=== PATIENT | female | born 1960 | race Caucasian/White ===

== ENCOUNTER 2016-04-15 09:11 | Outpatient (CLI) | payer MEDICARE | END 2016-04-15 09:12 | disposition home or self-care (01) | DX: M85.832 Other specified disorders of bone density and structure, left forearm (principal); E55.0 Rickets, active; Z96.643 Presence of artificial hip joint, bilateral ==

== ENCOUNTER 2017-01-01 16:05 | Outpatient (CLI) | payer MEDICARE ==
--- NOTE | 2017-01-02 15:13 | Mammography Report ---
DIGITAL SCREENING MAMMOGRAM: 01/01/2017 CLINICAL INDICATION: A 56-year-old for screening. COMPARISON: 07/2015, 04/2014, 04/2013, 03/2012, 04/2010 TECHNIQUE: Routine CC and MLO projections were obtained of the breasts. FINDINGS: Scattered fibroglandular tissue is present within the breasts. There are no dominant naya s, suspicious microcalcifications, or secondary signs of malignancy. In comparison to the previous st udies, there are no significant changes. ASSESSMENT: NO MAMMOGRAPHIC EVIDENCE OF MALIGNANCY. NO SIGNIFICANT INTERVAL CHANGES. RECOMMENDATION: Screening mammography is recommended annually. BIRADS category 1 - negative. STANDARD QUALIFYING STATEMENTS 1. This examination was reviewed with the aid of Computed-Aided Detection (CAD). 2. A negative or benign imaging report should not delay biopsy if clinically suspicious findings are present. Consider surgical consultation if warranted. More than 5% of cancers are not identified by i maging. 3. Dense breasts may obscure an underlying neoplasm. JOB #: [id number] EXT JOB #:[id number]
== END 2017-01-01 16:06 | disposition home or self-care (01) ==
LOC: DI.N 16:05
PROVIDERS: ATTEND Family Medicine
DX: Z12.31 Encounter for screening mammogram for malignant neoplasm of breast (principal)
CPT/HCPCS: 77067

== ENCOUNTER 2017-07-21 16:48 | Outpatient (CLI) | payer MEDICARE ==
--- NOTE | 2017-07-22 13:03 | Ultrasound Report ---
COMPLETE ABDOMINAL ULTRASOUND: 07/21/2017 CLINICAL INDICATION: Epigastric pain. TECHNIQUE: Real-time scanning was performed with traveling representative static images obtained. FINDINGS: The liver measures 15.3 cm. Hepatic echogenicity is increased, compatible with fatty infiltration. No focal parenchymal lesion or intrahepatic biliary dilatation is present. The gallbladder is surgically absent. The common bile duct measures 8 mm. The visualized pancreas is unremarkable. The right kidney measures 10.1 cm, and is unremarkable. The left kidney measures 9.5 cm, and demonstrates a 6 mm cortical cyst. Spleen measures 7 cm, and demonstrates normal echotexture. The abdominal aorta is normal in caliber throughout. The inferior vena cava is unremarkable. No free fluid is present. IMPRESSION: INCIDENTAL LEFT RENAL CYST. FATTY INFILTRATION OF THE LIVER. CHANGES OF CHOLECYSTECTOMY. TD: 07/22/2017 13:01
== END 2017-07-21 16:49 | disposition home or self-care (01) ==
LOC: DI 16:48
PROVIDERS: ATTEND Family Medicine
DX: K90.0 Celiac disease (principal); R10.13 Epigastric pain; Q61.01 Congenital single renal cyst; K76.0 Fatty (change of) liver, not elsewhere classified
CPT/HCPCS: 76700

== ENCOUNTER 2017-11-13 07:30 | Outpatient (CLI) | payer MEDICARE ==
[2017-11-13 18:54] LABS: BILIRUBIN,URINE NEGATIVE (NEGATIVE); GLUCOSE, URINE (UA) NEGATIVE (NEGATIVE); KETONES,URINE (UA) NEGATIVE (NEGATIVE); LEUKOCYTE ESTERASE, URINE NEGATIVE (NEGATIVE); NITRITE,URINE NEGATIVE (NEGATIVE); OCCULT BLOOD,URINE NEGATIVE (NEGATIVE); PROTEIN,URINE NEGATIVE (NEGATIVE); UROBILINOGEN,URINE 0.2 (NORMAL) E.U./dL (NORMAL)
[2017-11-13 19:08] LABS: BACTERIA,URINE None Seen /HPF (None Seen); CLARITY,URINE CLEAR (CLEAR); RBC,URINE None Seen /HPF (0-5); SQUAMOUS EPITHELIAL CELL,UR MOD Squamous (<= Few)
== END 2017-11-13 07:31 | disposition home or self-care (01) ==
LOC: LAB.WCP 07:30
PROVIDERS: ATTEND Physician Assistant Medical
DX: N39.46 Mixed incontinence (principal)
CPT/HCPCS: 81001; 87086

== ENCOUNTER 2017-12-05 14:24 | Outpatient (CLI) | payer MEDICARE | END 2017-12-05 14:25 | disposition home or self-care (01) | LOC: LAB.R 14:24 | PROVIDERS: ATTEND Physician Assistant Medical | DX: K52.9 Noninfective gastroenteritis and colitis, unspecified (principal) | CPT/HCPCS: 81599; 83630; 87045; 87046; 87177; 87209; 87329; 87493 ==

== ENCOUNTER 2017-12-10 14:12 | Outpatient (CLI) | payer MEDICARE ==
[2017-12-10] MEDS ORDERED: IOPAMIDOL-300 100 ML VIAL ONE (14:17)
[2017-12-10] MEDS ORDERED: IOPAMIDOL-300 50 ML VIAL ONE (14:17)
[2017-12-10] MEDS ORDERED: IOPAMIDOL-300 100 ML VIAL IVP ONE (15:42)
[2017-12-10] MEDS ORDERED: IOPAMIDOL-300 50 ML VIAL PO ONE (15:42)
--- NOTE | 2017-12-11 07:53 | CT Report ---
Reason: DIARRHEA, CHRONIC, ABDOMINAL PAIN Procedure Date: 12/10/2017 Accession Number: [id number] / [id number] Procedure: CT - Abdomen/Pelvis W/ CPT Code: FULL RESULT: EXAM: CT ABDOMEN AND PELVIS EXAM DATE: 12/10/2017 03:39 PM. CLINICAL HISTORY: DIARRHEA, CHRONIC, ABDOMINAL PAIN. COMPARISONS: None. TECHNIQUE: Routine helical CT imaging was performed through the abdomen and pelvis. IV contrast: CE. Enteric contrast: No. Reconstructions: Coronal and sagittal. In accordance with CT protocol optimization, one or more of the following dose reduction techniques were utilized for this exam: automated exposure control, adjustment of mA and/or KV based on patient size, or use of iterative reconstructive technique. FINDINGS: Lung Bases: Unremarkable. Liver: Normal. No masses. Gallbladder/Bile Ducts: Status post cholecystectomy. Spleen: Normal. Pancreas: Normal. Adrenal Glands: There is a 1.1 cm left adrenal nodule, which subjectively appears to contain macroscopic fat, but given the nodule size of this could not be confirmed by measurement of Hounsfield units. The right adrenal gland is normal. Kidneys: Normal. No masses or hydronephrosis. Peritoneal Cavity/Bowel: There is mild subtle thickening of the descending and rectosigmoid colon, which demonstrates scant diverticulosis without evidence of focal diverticulitis. No free fluid, free air or adenopathy. No masses or acute inflammatory process. The appendix is well visualized and normal. Pelvic Organs: Evaluation of the pelvis is limited by streak artifact from hip arthroplasties. The bladder and visualized pelvic organs are within normal limits. Vasculature: No aneurysms or other significant abnormality. Bones: No aggressive osseous lesions. Other: The patient is status post bilateral total hip arthroplasty. IMPRESSION: 1.Findings are compatible with descending colitis, which may have a number of etiologies, including inflammatory, infectious, and less likely ischemic (given the distribution) causes. Recommend: Consideration of direct visualization with colonoscopy. 2. The left adrenal gland nodule, while not successfully characterized, is statistically likely to represent an adenoma. Recommend: One option is definitive characterization by CT adrenal mass protocol with multiphase imaging. Alternatively, if the patient has no history of malignancy and no malignancy is suspected, 6 month follow-up noncontrast CT would be helpful. RADIA
== END 2017-12-10 14:13 | disposition home or self-care (01) ==
LOC: DI 14:12
PROVIDERS: ATTEND Family Medicine
DX: K52.9 Noninfective gastroenteritis and colitis, unspecified (principal); R10.9 Unspecified abdominal pain
CPT/HCPCS: 74177; Q9967

== ENCOUNTER 2018-01-06 13:36 | Outpatient (CLI) | payer MEDICARE ==
--- NOTE | 2018-01-07 09:34 | Mammography Report ---
Reason: SCREENING MAMMO Procedure Date: 01/06/2018 Accession Number: [id number] / [id number] Procedure: MGN - Screening Mammo Dig Bilat CPT Code: FULL RESULT: EXAM: Screening Mammo Dig Bilat DATE: 01/06/2018 1:55 PM CLINICAL HISTORY: Screening mammogram TECHNIQUE: Bilateral CC and MLO views were obtained. COMPARISON: Mammogram 01/01/2017 FINDINGS: The breast parenchyma is heterogeneously dense which may limit the sensitivity of mammography. There is a new focus of architectural distortion in the right breast 3:00 position at anterior depth. No suspicious masses or suspicious clustered microcalcifications are seen. IMPRESSION: BI-RADS Category 0. Additional imaging is needed. RECOMMENDATION: Recommend right diagnostic mammogram to evaluate architectural distortion. Spot compression views and right breast ultrasound as indicated. BIRADS CATEGORY 0: Incomplete examination STANDARD QUALIFYING STATEMENTS: 1. This examination was reviewed with the aid of Computer-Aided Detection (CAD). 2. A negative or benign imaging report should not delay biopsy if clinically suspicious findings are present. Consider surgical consultation if warrented. More than 5% of cancers are not identified by imaging. 3. Dense breasts may obscure an underlying neoplasm.
== END 2018-01-06 13:37 | disposition home or self-care (01) ==
LOC: DI.N 13:36
DX: Z12.31 Encounter for screening mammogram for malignant neoplasm of breast (principal)
CPT/HCPCS: 77067

== ENCOUNTER 2018-01-23 13:36 | Outpatient (CLI) | payer MEDICARE ==
--- NOTE | 2018-01-23 15:09 | Mammography Report ---
Reason: ABN MAMMO - RT SPEC VIEWS Procedure Date: 01/23/2018 Accession Number: [id number] / [id number] Procedure: HECTOR - Diag Special Views Dig RT CPT Code: FULL RESULT: EXAM: Diag Special Views Dig RT DATE: 01/23/2018 2:32 PM CLINICAL HISTORY: Recall from recent screening for right breast possible asymmetry. TECHNIQUE: Right CC and MLO spot compression. 90 degree 2-D and 3-D images. COMPARISON: 01/06/2018 through 04/22/2012 FINDINGS: The breasts demonstrate heterogeneously dense fibroglandular parenchyma bilaterally. Area of concern recalled from recent screening does not persist on additional views consistent with summation of normal tissues. Area has returned to its baseline appearance. There are no suspicious masses, calcifications or areas of distortion. IMPRESSION: Negative examination RECOMMENDATION: Routine annual screening unless otherwise clinically indicated. BI-RADS CATEGORY 1: Negative STANDARD QUALIFYING STATEMENTS: 1. This examination was not reviewed with the aid of Computer-Aided Detection (CAD). 2. A negative or benign imaging report should not preclude biopsy if clinically suspicious findings are present. 3. Dense breasts may obscure an underlying neoplasm. 4. This examination was reviewed with the aid of 3D breast imaging (tomosynthesis).
== END 2018-01-23 13:37 | disposition home or self-care (01) ==
LOC: DI 13:36
PROVIDERS: ATTEND Family Medicine
DX: R92.8 Other abnormal and inconclusive findings on diagnostic imaging of breast (principal)

== ENCOUNTER 2019-01-01 11:26 | Outpatient (CLI) | payer MEDICARE ==
--- NOTE | 2019-01-01 14:33 | Mammography Report ---
Reason: SCREENING MAMMO Procedure Date: 01/01/2019 Accession Number: [id number] / [id number] Procedure: MGN - Screening Mammo Dig Bilat CPT Code: FULL RESULT: EXAM: Screening Mammo Dig Bilat DATE: 01/01/2019 11:49 AM CLINICAL HISTORY: Screening encounter. History of early menses. TECHNIQUE: (B) - Bilateral CC and MLO views were obtained. COMPARISON: 01/06/2018 through 04/20/2010. PARENCHYMAL PATTERN: (A) - The breast(s) demonstrate(s) scattered fibroglandular densities. FINDINGS: There are no suspicious masses, calcifications, or areas of distortion. IMPRESSION: Negative examination. BI-RADS category 1. RECOMMENDATION: (ANNUAL) - Recommend routine annual screening mammography. BI-RADS CATEGORY: (1) - Negative. STANDARD QUALIFYING STATEMENTS: 1. This examination was not reviewed with the aid of Computer-Aided Detection (CAD). 2. A negative or benign imaging report should not preclude biopsy if clinically suspicious findings are present. 3. Dense breasts may obscure an underlying neoplasm. 4. This examination was reviewed without the aid of 3D breast imaging (tomosynthesis).
== END 2019-01-01 11:27 | disposition home or self-care (01) ==
LOC: DI.N 11:26
DX: Z12.31 Encounter for screening mammogram for malignant neoplasm of breast (principal)
CPT/HCPCS: 77067

== ENCOUNTER 2019-10-07 11:48 | Outpatient (CLI) | payer MEDICARE ==
[2019-10-07 18:52] LABS: BASOPHILS # (AUTO) 0.1 10^3/uL (0.0-0.1); BASOPHILS % (AUTO) 0.9 %; EOSINOPHILS # (AUTO) 0.1 10^3/uL (0.0-0.7); EOSINOPHILS % (AUTO) 1.1 %; HGB - HEMOGLOBIN 12.5 g/dL (12.0-16.0); LYMPHOCYTES # (AUTO) 1.9 10^3/uL (1.5-3.5); LYMPHOCYTES % (AUTO) 21.8 %; MEAN CORPUSCULAR HEMOGLOBIN 32.2 pg (27.0-31.0); MEAN CORPUSCULAR HGB CONC 32.1 g/dL (32.0-36.0); MEAN CORPUSCULAR VOLUME 100.3 fL (81.0-99.0); MONOCYTES # (AUTO) 0.6 10^3/uL (0.0-1.0); MONOCYTES % (AUTO) 6.9 %; NEUTROPHILS # (AUTO) 6.1 10^3/uL (1.5-6.6); NEUTROPHILS % (AUTO) 68.8 %; PLT - PLATELET COUNT 233 10^3/uL (130-450); RED BLOOD COUNT 3.88 10^6/uL (4.20-5.40); WHITE BLOOD COUNT 8.9 x10^3/uL (4.8-10.8)
[2019-10-07 19:04] LABS: ALBUMIN 4.4 g/dL (3.2-5.5); ALBUMIN/GLOBULIN RATIO 1.5 (1.0-2.2); ALKALINE PHOSPHATASE 61 IU/L (42-121); ALT ALANINE AMINOTRANSFERASE 20 IU/L (10-60); AST ASPARTATE AMINOTRANSFERASE 19 IU/L (10-42); BILIRUBIN,TOTAL 1.1 mg/dL (0.2-1.0); BUN - BLOOD UREA NITROGEN 16 mg/dL (6-20); CALCIUM 8.9 mg/dL (8.5-10.3); CARBON DIOXIDE - CO2 25 mmol/L (21-32); CHLORIDE 105 mmol/L (101-111); CHOL/HDL RATIO 2.7 (<4.4); CHOLESTEROL 196 mg/dL; CREATININE 0.5 mg/dL (0.4-1.0); GLUCOSE 92 mg/dL (70-100); HDL CHOLESTEROL 72 mg/dL; LDL CHOLESTEROL,CALCULATED 100 mg/dL; LDL/HDL RATIO 1.4 (<4.4); SODIUM 138 mmol/L (135-145); TOTAL PROTEIN 7.3 g/dL (6.7-8.2); VLDL CHOLESTEROL 24 mg/dL
== END 2019-10-07 23:59 | disposition home or self-care (01) ==
LOC: LAB.WCP 11:48
PROVIDERS: ATTEND Family Medicine
DX: I10 Essential (primary) hypertension (principal); E55.0 Rickets, active; E50.0 Vitamin A deficiency with conjunctival xerosis
CPT/HCPCS: 36415; 80053; 80061; 82306; 83721; 83970; 84443; 85025

== ENCOUNTER 2019-12-28 13:30 | Outpatient (CLI) | payer MEDICARE ==
--- NOTE | 2019-12-30 12:54 | Mammography Report ---
BILATERAL DIGITAL SCREENING MAMMOGRAM 3D/2D: 12/28/2019 CLINICAL: Routine screening. Comparison is made to exams dated: 01/01/2019 mammogram, 01/23/2018 mammogram, 01/06/2018 mammogram, 01/01/2017 mammogram, 08/09/2015 mammogram, and 05/02/2014 mammogram - [facility]. T here are scattered fibroglandular elements in both breasts. No significant masses, calcifications, or other findings are seen in either breast. There has been no significant interval change. IMPRESSION: NEGATIVE There is no mammographic evidence of malignancy. A 1 year screening mammogram is recommended. This exam was interpreted at Station ID: [id number]. NOTE: For mammograms, a report in lay terms will be sent to the patient. Approximately 15% of breast malignancies will not be visualized mammographically. In the management of a palpable breast mass, a negative mammogram must not discourage biopsy of a clinically suspicious lesion. Electronically Signed By: Liyah [email or web address]/[email or web address]:12/28/2019 15:40:25 ACR BI-RADS Category 1: Negative 3341F PARENCHYMAL PATTERN: (A) - The breast(s) demonstrate(s) scattered fibroglandular densities. BI-RADS CATEGORY: (1) - 1 RECOMMENDATION: (ANNUAL) - Recommend routine annual screening mammography. [id number] 1 year screening LATERALITY: (B)
== END 2019-12-28 13:31 | disposition home or self-care (01) ==
LOC: DI.N 13:30
DX: Z12.31 Encounter for screening mammogram for malignant neoplasm of breast (principal)
CPT/HCPCS: 77063; 77067

== ENCOUNTER 2020-02-15 16:00 | Outpatient (CLI) | payer MEDICARE | END 2020-02-15 23:59 | disposition home or self-care (01) | LOC: LAB.R 16:00 | PROVIDERS: ATTEND Family Medicine | DX: J01.00 Acute maxillary sinusitis, unspecified (principal); Z20.828 Contact with and (suspected) exposure to other viral communicable diseases ==